=== PATIENT | female | born 1950 | race Caucasian/White ===

== ENCOUNTER → 2023-07-26 | Outpatient (CLI) | payer MEDICARE ==
[2023-07-27 03:07] LABS: Basophils # (A) 0.05 X 10*3/uL (0.00-0.10); Basophils % (A) 0.8 %; Eosinophils # (A) 0.21 X 10*3/uL (0.04-0.35); Eosinophils % (A) 3.4 %; HCT 42.1 % (37.2-46.3); HGB 13.2 g/dL (12.0-15.0); Lymphocytes # (A) 0.75 X 10*3/uL (0.90-5.00); MCH 29.4 pg (27.0-32.0); MCHC 31.4 g/dL (32.0-37.0); MCV 93.8 FL (80.0-97.0); Mean Platelet Volume 11.6 FL (9.5-12.2); Monocytes # (A) 0.71 X 10*3/uL (0.20-1.00); Monocytes % (A) 11.3 %; NRBC Per 100 WBC 0 X 10*3/uL (0.00-0.01); Neutrophils # (A) 4.52 X 10*3/uL (1.80-7.70); Neutrophils % (A) 72.2 %; Platelet Count 198 X 10*3/uL (140-440); RBC 4.49 X 10*6/uL (4.10-5.20); RDW 14.7 % (11.5-14.5); WBC 6.26 X 10*3/uL (4.50-10.00)
== END | disposition home or self-care (01) ==
LOC: LABPAT 15:38
PROVIDERS: ATTEND Obstetrics & Gynecology
DX: Z01.812 Encounter for preprocedural laboratory examination (principal); N95.0 Postmenopausal bleeding; R93.89 Abnormal findings on diagnostic imaging of other specified body structures
CPT/HCPCS: 85025

== ENCOUNTER → 2023-08-25 | Day surgery (SDC) | payer MEDICARE ==
[~2023-08-25] MED LIST: ALBUTEROL NEBULIZED 2.5 MG/3 ML INHALATION ONE; ALBUTEROL NEBULIZED 2.5 MG/3 ML INHALATION STA; DEXAMETHASONE SOD PHOSPHATE 4 MG/ML 1 ML VIAL IV ONE; DEXAMETHASONE SOD PHOSPHATE 4 MG/ML 1 ML VIAL IVP ONE; HYDROmorphone 0.5 MG/0.5 ML SYRINGE IVP PRN; LACTATED RINGERS 1,000 ML IV SCH; LIDOCAINE 1% INJ 10MG/ML (20 ML MDV) ONE; MIDAZOLAM 2 MG/2 ML VIAL IV PRN; ONDANSETRON 4 MG/2 ML VIAL IVP ONE; PROPOFOL 10 MG/ML 20 ML VIAL IV ONE; Pre Op ABX Message 1 EACH MISC MISCELLANE ONE; fentaNYL (PF) 50 MCG/ML 2 ML AMP ONE
--- NOTE | 2023-08-25 11:08 | P.OP ---
Date of Procedure: 08/25/23 Preoperative Diagnosis: 1. Postmenopausal Bleeding 2. Thickened endometrium 3. Failed endometrial biopsy in office Postoperative Diagnosis: Same Procedure(s) Performed: Hysteroscopy dilation and curettage Implants: None Anesthesia: [facility] Surgeon: Morena Rogers Estimated Blood Loss (ml): 50 IV fluids (ml): 400 Urine output (ml): 200 Pathology: other (endometrial curettings) Condition: stable Disposition: same day Indications for Procedure: Ms. Gonzalez is a 73 year old who had an episode of postmenopausal bleeding. Transvaginal ultrasound at the time showed a 4 mm endometrial lining, appr opriate for menopause. Endometrial biopsy was attempted and unsuccessful in the office. We planned to repeat the ultrasound again in 3 months. At that time, the lining had increased to 9mm. At that time, hysteroscopy D&C was recommend to the patient for endometrial sampling. Risks, benefits, and alternatives to Hysteroscopy D&C were discussed with the patient including risks of bleeding, infection, uterine perforation, and damage to surrounding structures. All questions were answered. Operative Findings: Stenotic cervix again noted. The endometrium has adhesions and for this reason, ostia are unable to be visualized. Description of Procedure: Patient is brought to the operating suite and placed in the dorsal lithotomy position. The cervix perineum and lower abdomen are prepped and draped in the usual sterile fashion. Examination under anesthesia reveals a small, anteverted uterus. Adnexa are negative bilaterally. The bladder is drained for approximately 200 mL of clear yellow urine. The anterior lip of the cervix is grasped with a double toothed tenaculum after the weighted speculum is placed into the vagina. The uterus sounds to a depth of 7 cm in the anteverted position. The Hanks dilators are placed and the cervix was dilated to 12 mm. The hysteroscope was then introduced and with saline infusion the cavity is distended. Adhesions are noted. The cervix is then dilated to 18 mm. A medium sharp curette is used and the polyps and tissue are thoroughly evacuated. The "quiet cry of the uterus" is then appreciated. When the uterine cavity is evacuated the hysteroscope was once again introduced and the cavity is noted to be completely evacuated. All sponge needle and instrument counts are correct. Instrumentation is removed from the vagina and the patient is brought to the recovery room in stable condition. Toradol is given prior to leaving the operative suite. Patient will follow up with me in the office in 2 weeks.
[2023-08-25 11:10] VITALS: TEMP 97.7
[2023-08-25 12:47] VITALS: RESP 20
[2023-08-25 14:24] VITALS: BP 118/70; PULSE 87
== END | disposition home or self-care (01) ==
LOC: OR 07:54
PROVIDERS: ATTEND Obstetrics & Gynecology
DX: N88.3 Incompetence of cervix uteri (principal); N95.0 Postmenopausal bleeding; I10 Essential (primary) hypertension; E78.5 Hyperlipidemia, unspecified; Z87.891 Personal history of nicotine dependence; Z98.891 History of uterine scar from previous surgery; Z98.890 Other specified postprocedural states; Z79.899 Other long term (current) drug therapy
CPT/HCPCS: 88305; 58558; J1100; J2405; J2001; J3010; J2704